=== PATIENT | male | born 1935 | race Hispanic/Latino ===

== ENCOUNTER 2018-07-17 00:30 | Inpatient (IN) | payer MEDICARE, OTHER ==
[2018-07-17 00:57] LABS: BASO # 0.1 K/uL (0.0-0.2); BASO % 0.5 % (0.0-2.0); EOS # 0.3 K/uL (0.0-0.7); HEMOGLOBIN 17.4 g/dL (12.0-18.0); LYMPH # 1.7 K/uL (1.0-4.3); LYMPH % 11.8 % (20.0-40.0); MEAN CELL VOLUME 98.6 fL (80.0-94.0); MEAN CORPUSCULAR HEMOGLOBIN 33.6 pg (27.0-31.0); MEAN CORPUSCULAR HGB CONC 34.1 g/dL (33.0-37.0); MEAN PLATELET VOLUME 9.7 fL (7.2-11.7); MONO # 1.1 K/uL (0.0-0.8); MONO % 7.9 % (0.0-10.0); NEUT # 11.2 K/uL (1.8-7.0); NEUT % 77.8 % (50.0-75.0); RBC 5.17 Mil/uL (4.40-5.90); RED CELL DISTRIBUTION WIDTH 13.8 % (11.5-14.5); WHITE BLOOD COUNT 14.4 K/uL (4.8-10.8)
--- NOTE | 2018-07-17 00:57 | C.PDOC ---
History Of Present Illness 83 y/o M c PMHx CHF p/w shortness of breath x 3 days which he states is similar to previous CHF exacerbations. Reports midsternal chest pressure x 7 hours, constant, nonradiating. Denies nausea, fever, cough, vomiting, abdominal pain, leg swelling. Patient BIBEMS, received 3 duonebs and 1 inch of nitropaste en route. PMD Teddy Time Seen by Provider: 07/17/18 00:41 Chief Complaint (Nursing): Respiratory Distress Past Medical History Vital Signs: Last Vital Signs Temp 97.8 F 07/17/18 00:31 Pulse 118 H 07/17/18 00:31 Resp 28 H 07/17/18 00:37 BP 192/96 H 07/17/18 00:31 Pulse Ox 100 07/17/18 00:37 - Medical History PMH: HTN, Hypercholesterolemia, Kidney Stones - [facility] Procedures CORONAR ARTERIOGR-2 CATH (12/03/12) LEFT HEART CARDIAC CATH (12/03/12) LT HEART ANGIOCARDIOGRAM (12/03/12) REMOV URETERAL DRAIN (04/09/14) TU REMOV URETER OBSTRUCT (03/20/14) URETERAL CATHETERIZATION (03/20/14) URETEROSCOPY (03/20/14) Family History: States: No Known Family Hx - Social History Hx Tobacco Use: Yes Hx Alcohol Use: No Hx Substance Use: No - Immunization History Hx Influenza Vaccination: No Review Of Systems Except As Marked, All Systems Reviewed And Found Negative. Constitutional: Negative for: Fever Gastrointestinal: Negative for: Vomiting Physical Exam - Physical Exam Additional Physical Exam Comments: Constitutional: No acute distress. Head: Normocephalic. Atraumatic. Eyes: PERRL. ENT: Moist mucous membranes. Neck: No JVD. Cardiovascular: Tachycardic. Chest: No tenderness. Respiratory: Bibasilar crackles. GI: Soft. Nontender. Nondistended. Back: No CVA tenderness. Musculoskeletal: No tenderness or swelling of extremities. Skin: No rash. Neurologic: Alert, no focal deficit. ED Course And Treatment - Laboratory Results Result Diagrams: 07/17/18 00:52 07/17/18 00:52 O2 Sat by Pulse Oximetry: 100 Medical Decision Making Medical Decision Making: EKG NSR 106 bpm, LBBB, no concordant ST elevations or depressions. Placed on Bi Pap. CXR no consolidation. Trop positive. Aspirin, heparin, metoprolol administered. Dr. Tyler accepts to his service, recommends Dr. Sheikh for consultation. Dr. Sheikh recommends adding 600mg Plavix. Disposition - Disposition Disposition: HOSPITALIZED Disposition Time: 01:55 Condition: GUARDED - Clinical Impression Clinical Impression: NSTEMI (non-ST elevated myocardial infarction), CHF exacerbation
[2018-07-17 01:06] LABS: PROTHROMBIN TIME 11.2 SECONDS (9.7-12.2)
[2018-07-17 01:09] LABS: ALB/GLOB RATIO 1.2 (1.0-2.1); ALBUMIN 4.4 g/dL (3.5-5.0); ALT/SGPT 15 U/L (21-72); AST/SGOT 28 U/L (17-59); BLOOD UREA NITROGEN 27 mg/dL (9-20); GFR NON-AFRICAN AMERICAN 58
[2018-07-17 01:28] LABS: CK-MB 1.15 ng/mL (0.0-3.38)
[2018-07-17 01:54] LABS: TROPONIN I 0.121 ng/mL (0.00-0.120)
[2018-07-17] MEDS ORDERED: Heparin25000 units/250ml 1/2NS 25,000 UNITS/250 ML BAG IV STA (02:32)
[2018-07-17] MEDS ORDERED: Heparin25000 units/250ml 1/2NS 25,000 UNITS/250 ML BAG IV PRN ×2 (02:40→14:00)
[2018-07-17 04:04] VITALS: RESP 20
--- NOTE | 2018-07-17 09:03 | CP.PCM.PN ---
Subjective - Date & Time of Evaluation Date of Evaluation: 07/17/18 Time of Evaluation: 09:03 - Subjective Subjective: PGY2 Medicine Note for Dr. Riley Tyler Patient seen and examined this morning at bedside. Patient was admitted overnight for CHF exacerbation and NSTEMI. Patient has had 1 episode of heart failure approximately 5 years ago and has been well controlled since. He denies any other past medical history. He has an extensive smoking history. He has been experiencing worsening shortness of breath for the past week. He is also complaining of a non-productive cough. Patient is currently wearing BiPAP speaking in short sentences. Denies nausea, vomiting, chest pain, lightheadedness, dizziness, fever, chills, numbness or tingling. Objective - Vital Signs/Intake and Output Vital Signs (last 24 hours): Temp Pulse Resp BP Pulse Ox 97.5 F L 66 20 172/72 H 97 07/17/18 07:20 07/17/18 07:20 07/17/18 07:20 07/17/18 07:20 07/17/18 07:20 - Medications Medications: Current Medications Aspirin (Aspirin) 325 mg PO DAILY HUEY Furosemide (Lasix) 40 mg IVP DAILY HUEY Hydrochlorothiazide (Microzide) 12.5 mg PO DAILY HUEY Heparin Sodium/Sodium Chloride (Heparin 48848 Units/250ml 1/2 Normal Saline) 25,000 units in 250 mls @ 8.709 mls/hr IV Q24H PRN; Protocol PRN Reason: PER PROTOCAL Last Admin: 07/17/18 03:12 Dose: 8.709 mls/hr Losartan Potassium (Cozaar) 50 mg PO DAILY HUEY Metoprolol Tartrate (Lopressor) 50 mg PO BID HUEY Pantoprazole Sodium (Protonix Ec Tab) 40 mg PO DAILY HUEY Pneumococcal Polyvalent Vaccine (Pneumovax 23 Vaccine) 0.5 ml IM .ONCE ONE Stop: 07/19/18 10:01 - Labs Labs: 07/17/18 00:52 07/17/18 00:52 PT 11.2 SECONDS (9.7-12.2) 07/17/18 00:52 INR 1.0 07/17/18 00:52 APTT 22 SECONDS (21-34) 07/17/18 00:52 - Constitutional Appears: No Acute Distress (currently on BiPAP), Chronically Ill - Head Exam Head Exam: ATRAUMATIC, NORMOCEPHALIC - Eye Exam Eye Exam: Normal appearance - ENT Exam ENT Exam: Mucous Membranes Moist - Neck Exam Neck Exam: absent: Lymphadenopathy - Respiratory Exam Respiratory Exam: Decreased Breath Sounds (currently on BiPAP). absent: Accessory Muscle Use, Rales, Rhonchi, Wheezes, Respiratory Distress - Cardiovascular Exam Cardiovascular Exam: REGULAR RHYTHM, +S1, +S2 - GI/Abdominal Exam GI & Abdominal Exam: Soft. absent: Distended, Firm, Guarding, Rigid, Tenderness - Extremities Exam Extremities Exam: absent: Calf Tenderness, Pedal Edema - Neurological Exam Neurological Exam: Alert, Awake, Oriented x3 - Psychiatric Exam Psychiatric exam: Normal Affect, Normal Mood - Skin Skin Exam: Dry, Warm Assessment and Plan - Assessment and Plan (Free Text) Plan: NSTEMI CHF Exacerbation Cardiology consult, Dr. Sheikh * follow up recs CXR - no acute disease EKG - Sinus tach @106bpm, PVCs, LBBB Cardiac Cath 12/04/2012 showed non-obstructive disease with and EF of ~45%. ECHO pending Trop 0.1210, repeat q8h x2 Pro BNP 2660 Medications * Aspirin 325mg PO daily * Lasix 40mg IVP daily * HCTZ 12.5mg PO daily * Losartan 50mg PO Daily * Metoprolol 50mg PO BID * Heparin drip Prophylactic Care Protonix 40mg PO daily Heparin Drip Case discussed and all medical management per Dr. Riley Mayorga Karena PGY2
[2018-07-17] MEDS ORDERED: Pantoprazole 40 mg EC Tab PO SCH (10:00)
--- NOTE | 2018-07-17 10:58 | RAD ---
Date of service: 07/17/2018 HISTORY: chest pain, dyspnea COMPARISON: No prior. FINDINGS: LUNGS: No active pulmonary disease. PLEURA: No significant pleural effusion identified, no pneumothorax apparent. CARDIOVASCULAR: No atherosclerotic calcification present Normal. OSSEOUS STRUCTURES: No significant abnormalities. VISUALIZED UPPER ABDOMEN: Normal. OTHER FINDINGS: Left hilar prominence similar to that seen on the topogram and subsequent images from CT scan of the thorax 03/02/2014. IMPRESSION: No active disease.
[2018-07-17 11:41] LABS: CK-MB 3.04 ng/mL (0.0-3.38); TROPONIN I 0.955 ng/mL (0.00-0.120)
--- NOTE | 2018-07-17 14:10 | CARD ---
APPROVED REPORT Date of service: 07/17/2018 EXAM: Two-dimensional and M-mode echocardiogram with Doppler and color Doppler. INDICATION Congestive Heart Failure Non STEMI 2D DIMENSIONS IVSd0.8 (0.7-1.1cm)Aortic Root (2D)3.0 (2.0-3.7cm) LVDd5.8 (3.9-5.9cm)PWd1.0 (0.7-1.1cm) LA Oimbwk88 (18-58mL)LVDs4.4 (2.5-4.0cm) FS (%) 24.4 %LVEF (%)55.0 (>50%) LVEF (Myles's)56 %IVC0.00 cm M-Mode DIMENSIONS Left Atrium (MM)1.11 (2.5-4.0cm)IVSd0.62 (0.7-1.1cm) Aortic Root2.73 (2.2-3.7cm)LVDd8.17 (4.0-5.6cm) Aortic Cusp Exc.2.66 (1.5-2.0cm)PWd0.62 (0.7-1.1cm) FS (%) 35 %LVDs5.34 (2.0-3.8cm) LVEF (%)62 (>50%) Aortic Valve AI P 1/2 [id number] Mitral Valve MV E Zdcmjksn00.5cm/sMV A Slgmnjme810.2cm/sE/A ratio0.5 TDI Lateral E' Peak V7.71cm/sMedial E' Peak V2.87cm/sE/Lateral E'7.8 E/Medial E'21.1 Tricuspid Valve TR Peak Vjmzubsu863ys/sTR Peak Gr.[id number] LEFT VENTRICLE The Left Ventricle is borderline dilated. There is normal left ventricular wall thickness. Left ventricle systolic function is normal. The Ejection Fraction is 55-60%. There is normal LV segmental wall motion. Tissue Doppler imaging reveals abnormal left ventricular diastolic dysfunction. RIGHT VENTRICLE The right ventricle is normal size. There is normal right ventricular wall thickness. The right ventricular systolic function is normal. ATRIA The left atrium size is normal. The right atrium size is normal. The interatrial septum is intact with no evidence for an atrial septal defect. AORTIC VALVE The aortic valve is normal in structure. There is mild to moderate aortic regurgitation. There is no aortic valvular stenosis. MITRAL VALVE Mitral annular calcification is mild to moderate. There is no evidence of mitral valve prolapse. There is no mitral valve stenosis. Mitral regurgitation is mild. TRICUSPID VALVE The tricuspid valve is normal in structure. There is trace tricuspid regurgitation. Right ventricular systolic pressure is estimated at less than 30 mmHg. There is no pulmonary hypertension. PULMONIC VALVE The pulmonic valve is not well visualized. There is no pulmonic valvular regurgitation. GREAT VESSELS The aortic root is normal in size. PERICARDIAL EFFUSION There is no significant pericardial effusion. <Conclusion> Left ventricle systolic function is normal. The Ejection Fraction is 55-60%. Diastolic dysfunction. There is mild to moderate aortic regurgitation. Mitral regurgitation is mild. There is trace tricuspid regurgitation. There is no pulmonary hypertension. There is no pulmonic valvular regurgitation.
[2018-07-17 16:02] VITALS: BP 163/77; TEMP 97.6; O2SAT 98
[2018-07-17 16:26] VITALS: PULSE 85
[2018-07-19] MEDS ORDERED: Pneumococcal 23-Valent Vaccine IM ONE (10:00)
--- NOTE | 2018-07-19 17:56 | CARD ---
APPROVED REPORT Date of service: 07/17/2018 EKG Measurement Heart [id number] <Conclusion> Sinus tachycardia with occasional premature ventricular complexes Left bundle branch block Abnormal ECG
--- NOTE | 2018-07-19 19:22 | PQF ---
PROVIDER RESPONSE TEXT: Acute onchronic combined chf REVIEWER QUERY TEXT: CHF Acuity and Type Congestive Heart Failure is documented in the Medical Record. Please document the type and acuity (in cludes probable or suspected) Such as: Type: -- Systolic -- Diastolic -- Combined -- Other, please specify Acuity: -- Acute -- Chronic -- Acute on chronic -- Other, please specify Also please document the underlying cause of the CHF (includes probable or suspected) The patient's Clinical Indicators include: 83 y/o male presented with SOB for 3 days which he states similar to previous CHF exacerbations. Please specify type of CHF. Query created by: Miroslava Lorenzo on 07/19/2018 1:59 PM Electronically signed by: Jm PARRISH 07/19/2018 7:19 PM
--- NOTE | 2018-07-20 12:57 | CP.PCM.CON ---
History of Present Illness - History of Present Illness History of Present Illness: consultation for evaluation of SOB / NSTEMI HPI: Mr. Hardwick is a 83-year-old male who presented with complains of shortness of breath ongoing for 3 days prior to presentation patient reported some midsternal epigastric discomfort ongoing for 7 hours constant nonradiating he was admitted for evaluation of possible CAD past medical history significant for hypertension dyslipidemia renal stones EKG showed nonspecific changes he did have a cardiac catheterization back in November 2012 and ureteral obstruction removal of transurethral stones back in 2013 with ureteroscopy. He was ruled in for ACS with troponins and was subsequently planned to be transferred over for urgent cardiac catheterization. Review of Systems - Review of Systems Systems not reviewed;Unavailable: Acuity of Condition - Constitutional Constitutional: As Per HPI - EENT Eyes: As Per HPI Ears: As Per HPI Nose/Mouth/Throat: As Per HPI - Cardiovascular Cardiovascular: As Per HPI - Respiratory Respiratory: As Per HPI - Gastrointestinal Gastrointestinal: As Per HPI - Genitourinary Genitourinary: As Per HPI - Reproductive: Male Reproductive:Male: As Per HPI - Musculoskeletal Musculoskeletal: As Per HPI - Integumentary Integumentary: As Per HPI - Neurological Neurological: As Per HPI - Psychiatric Psychiatric: As Per HPI - Endocrine Endocrine: As Per HPI - Hematologic/Lymphatic Hematologic: As Per HPI Past Patient History - Infectious Disease Hx of Infectious Diseases: None - Past Medical History & Family History Past Medical History?: Yes - Past Social History Smoking Status: Heavy Smoker > 10 Cigarettes Daily - CARDIAC Hx Hypercholesterolemia: Yes Hx Hypertension: Yes - PULMONARY Other/Comment: pt states he smokes 1/2 pack a day for 60 to 70 years - NEUROLOGICAL Hx Neurological Disorder: No - HEENT Hx HEENT Problems: No - RENAL Hx Kidney Stones: Yes - MUSCULOSKELETAL/RHEUMATOLOGICAL Hx Falls: No - PSYCHIATRIC Hx Substance Use: No - SURGICAL HISTORY Hx Surgeries: Yes Hx Cardiac Catheterization: Yes Other/Comment: cystoscopy stent insertion - ANESTHESIA Hx Anesthesia: Yes Hx Anesthesia Reactions: No Hx Malignant Hyperthermia: No Has any member of the family had a problem w/ anesthesia?: No Meds Allergies/Adverse Reactions: Allergies Allergy/AdvReac Type Severity Reaction Status Date / Time No Known Allergies Allergy Verified 03/02/14 12:34 Physical Exam - Constitutional Appears: Well - Head Exam Head Exam: ATRAUMATIC, NORMAL INSPECTION, NORMOCEPHALIC - Eye Exam Eye Exam: EOMI, Normal appearance, PERRL Pupil Exam: NORMAL ACCOMODATION, PERRL - ENT Exam ENT Exam: Mucous Membranes Moist, Normal Exam - Neck Exam Neck exam: Positive for: Normal Inspection - Respiratory Exam Respiratory Exam: Clear to Auscultation Bilateral, NORMAL BREATHING PATTERN - Cardiovascular Exam Cardiovascular Exam: REGULAR RHYTHM - GI/Abdominal Exam GI & Abdominal Exam: Normal Bowel Sounds, Soft. absent: Tenderness - Extremities Exam Extremities exam: Positive for: normal inspection - Back Exam Back exam: NORMAL INSPECTION - Neurological Exam Neurological exam: Alert, CN II-XII Intact, Normal Gait, Oriented x3, Reflexes Normal - Psychiatric Exam Psychiatric exam: Normal Affect, Normal Mood - Skin Skin Exam: Dry, Intact, Normal Color, Warm Results - Vital Signs Recent Vital Signs: Last Vital Signs Temp 97.6 F 07/17/18 15:00 Pulse 85 07/17/18 16:15 Resp 20 07/17/18 15:00 BP 163/77 H 07/17/18 15:00 Pulse Ox 98 07/17/18 15:00 - Labs Result Diagrams: 07/17/18 00:52 07/17/18 00:52 Assessment & Plan (1) NSTEMI (non-ST elevated myocardial infarction) Assessment and Plan: IV heparin asa, plavix echo statins plan for urgent LHCx ( family requested to have it at [place] ) Status: Acute (2) Acute renal insufficiency Status: Acute (3) CHF exacerbation Assessment and Plan: 2' to ischemic heart disease echo Status: Acute
== END 2018-07-17 16:45 | disposition short-term general hospital (02) | DRG 280 ==
LOC: C.ER 00:30 → C.5S 03:41 → C.6T 04:04
PROVIDERS: ADMIT Internal Medicine Nephrology; ATTEND Internal Medicine Nephrology
DX: I21.4 Non-ST elevation (NSTEMI) myocardial infarction (principal); I50.43 Acute on chronic combined systolic (congestive) and diastolic (congestive) heart failure; I11.0 Hypertensive heart disease with heart failure; I44.7 Left bundle-branch block, unspecified; E78.00 Pure hypercholesterolemia, unspecified; Z87.442 Personal history of urinary calculi; Z87.891 Personal history of nicotine dependence